=== PATIENT | female | born 1945 | race Caucasian/White ===

== ENCOUNTER 2018-12-19 12:24 | Outpatient (CLI) | payer MEDICARE ==
--- NOTE | 2018-12-19 13:08 | RAD ---
THREE VIEWS RIGHT WRIST: INDICATION: Fall with pain. FINDINGS: There is no evidence of a fracture, dislocation, or other acute osseous abnormality of the right wris t. IMPRESSION: 1. No acute osseous abnormality. 2. Should symptoms persist subsequent to conservative management, short-term management in 5-7 days may be obtained to exclude an occult injury. POS: [facility]
== END 2018-12-19 12:25 | disposition home or self-care (01) ==
LOC: MADRAD 12:24
PROVIDERS: ATTEND Obstetrics & Gynecology
DX: M25.531 Pain in right wrist (principal); Z91.81 History of falling